=== PATIENT | female | born 2000 | race African-American/Black ===

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

== ENCOUNTER 2018-03-02 19:28 | Emergency (ER) | payer OTHER ==
[~2018-03-02] VITALS: Ht 167.6 cm; Wt 95.7 kg
[2018-03-02 19:48] VITALS: Ht 167.6 cm; Wt 95.7 kg
[2018-03-02 20:49] LABS: UA SPECIFIC GRAVITY >=1.030 (1.005-1.035); microscopic required? YES; urine erythrocyte NEGATIVE (NEGATIVE)
[2018-03-02 20:54] VITALS: BP 130/68
== END 2018-03-02 20:54 | disposition home or self-care (01) ==
LOC: ED 19:28
PROVIDERS: Emergency Medicine
DX: N76.0 Acute vaginitis (principal)
CPT/HCPCS: 36415; 87491; 87591

== ENCOUNTER 2018-06-26 09:53 | Emergency (ER) | payer OTHER ==
[~2018-06-26] VITALS: Ht 167.6 cm; Wt 92.5 kg
[2018-06-26 10:05] VITALS: Ht 167.6 cm; Wt 92.5 kg
[2018-06-26 10:34] LABS: UA SPECIFIC GRAVITY 1.025 (1.005-1.035); microscopic required? YES; urine erythrocyte NEGATIVE (NEGATIVE)
[2018-06-26 11:31] VITALS: BP 120/68
== END 2018-06-26 11:31 | disposition home or self-care (01) ==
LOC: ED 09:53
PROVIDERS: Emergency Medicine
DX: N39.0 Urinary tract infection, site not specified (principal)
CPT/HCPCS: 87491; 87591

== ENCOUNTER 2018-08-28 02:18 | Emergency (ER) | payer OTHER ==
[~2018-08-28] VITALS: Ht 167.6 cm; Wt 89.6 kg
[2018-08-28 02:41] VITALS: Ht 167.6 cm; Wt 89.6 kg
[2018-08-28 04:14] VITALS: BP 118/60
== END 2018-08-28 04:14 | disposition home or self-care (01) ==
LOC: ED 02:18
DX: N76.0 Acute vaginitis (principal); K12.0 Recurrent oral aphthae; Z98.890 Other specified postprocedural states
CPT/HCPCS: 87491; 87591

== ENCOUNTER 2018-10-29 22:35 | Emergency (ER) | payer OTHER ==
[~2018-10-29] VITALS: Ht 167.6 cm; Wt 91.6 kg
[2018-10-29 22:47] VITALS: BP 132/68; Ht 167.6 cm; Wt 91.6 kg
== END 2018-10-29 23:51 | disposition home or self-care (01) ==
LOC: ED 22:35
DX: G56.91 Unspecified mononeuropathy of right upper limb (principal)

== ENCOUNTER 2018-11-30 07:41 | Emergency (ER) | payer OTHER ==
[~2018-11-30] VITALS: Ht 167.6 cm; Wt 97.1 kg
[2018-11-30 07:46] VITALS: BP 104/59; Ht 167.6 cm; Wt 97.1 kg
== END 2018-11-30 08:52 | disposition home or self-care (01) ==
LOC: ED 07:41
DX: O23.41 Unspecified infection of urinary tract in pregnancy, first trimester (principal); Z3A.01 Less than 8 weeks gestation of pregnancy

== ENCOUNTER 2018-12-21 07:48 | Emergency (ER) | payer OTHER ==
[~2018-12-21] VITALS: Ht 167.6 cm; Wt 96.6 kg
[2018-12-21 08:09] VITALS: Ht 167.6 cm; Wt 96.6 kg
[2018-12-21 10:37] VITALS: BP 110/60
== END 2018-12-21 10:37 | disposition home or self-care (01) ==
LOC: ED 07:48
DX: H61.22 Impacted cerumen, left ear (principal); N89.8 Other specified noninflammatory disorders of vagina
CPT/HCPCS: 87491; 87591; J0696

== ENCOUNTER 2019-04-27 18:51 | Emergency (ER) | payer OTHER ==
[~2019-04-27] VITALS: Ht 167.6 cm; Wt 90.7 kg
[2019-04-27 18:53] VITALS: Ht 167.6 cm; Wt 90.7 kg
[2019-04-27 20:22] VITALS: BP 110/70
== END 2019-04-27 20:22 | disposition home or self-care (01) ==
LOC: ED 18:51
DX: J32.9 Chronic sinusitis, unspecified (principal); J03.90 Acute tonsillitis, unspecified; Z98.890 Other specified postprocedural states
CPT/HCPCS: J1885; J7512

== ENCOUNTER 2019-05-26 08:41 | Emergency (ER) | payer OTHER ==
[~2019-05-26] VITALS: Ht 167.6 cm; Wt 94.3 kg
[2019-05-26 08:43] VITALS: Ht 167.6 cm; Wt 94.3 kg
[2019-05-26 10:40] VITALS: BP 127/72
== END 2019-05-26 10:40 | disposition home or self-care (01) ==
LOC: ED 08:41
DX: N39.0 Urinary tract infection, site not specified (principal); Z13.89 Encounter for screening for other disorder
CPT/HCPCS: 36415